=== PATIENT | male | born 1955 | race Caucasian/White ===

== ENCOUNTER → 2016-03-20 | Outpatient (CLI) | payer BC ==
--- NOTE | 2016-03-20 21:49 | CONS ---
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 He is very much concerned about loud snoring that has been gradually getting worse over the years. He has not gained any significant amount of weight. He snores at night and occasionally wakes up gasping for air; however, this is not a frequent occurrence. He typically goes to bed at around 10 p.m., wakes up at 5:30 a.m. in the morning. He averages around 6 hours of sleep. It takes him a few minutes to fall asleep, and he wakes up occasionally in the middle of the night; he estimated at least 2 to 3 times per night. He is able to go back to sleep without any major difficulties. No history of chronic insomnia. No history alcoholism. No history of substance abuse. No sleepwalking or sleeptalking. No restlessness in the lower extremities. No GE reflux. He has a history of SVT. Current rhythm is sinus for now. He also has chronic allergic rhinitis, worse around springtime, and he is using Flonase in that regard. He has seen a dentist for grinding of his teeth, and he is currently wearing a bite block. PAST MEDICAL HISTORY: 1. History of SVT. 2. Allergic rhinitis. 3. Grinding of the teeth. SURGICAL HISTORY: None. DRUG ALLERGIES: NONE. OUTPATIENT MEDICATIONS: None. SOCIAL HISTORY: Nonsmoker. No history of alcoholism. No history of IV drugs. OCCUPATIONAL HISTORY: He is an electrician helper powerhouse. FAMILY HISTORY: Noncontributory. REVIEW OF SYSTEMS: Twelve-point review of systems was done and the positive findings were all mentioned above in the history of present illness. BP is 143/89, pulse 77, respiration 16, temperature 97.4, saturation 98% on room air. [place] score is 7. Neck size is 15 inches. BMI is 27.2. Weight is 166. Height is 65 inches. GENERAL APPEARANCE: Calm, comfortable. HEENT: There is an obvious overbite with a high-sitting tongue and a Mallampati class IV. No micrognathia. LUNGS: Clear to auscultation. Heart sounds are regular rate and rhythm. Normal S1, S2. ABDOMEN: Soft, nontender. No organomegaly. EXTREMITIES: No edema. No cyanosis or clubbing. IMPRESSION: 1. Loud snoring. Rule out underlying obstructive sleep apnea. 2. Allergic rhinitis, worse during spring, on Flonase. 3. History of supraventricular tachycardia. 4. Grinding of the teeth; wearing a bite block. PLAN: 1. Will proceed with a home sleep study to assess the presence and severity of obstructive sleep apnea; if so, treatment will be offered accordingly to this patient. 2. Continue wearing the bite guard for now. 3. Will follow.
== END | disposition home or self-care (01) ==
LOC: SLEEP 15:05
PROVIDERS: ATTEND Internal Medicine Critical Care Medicine
DX: R06.83 Snoring (principal); J30.9 Allergic rhinitis, unspecified; I47.1 Supraventricular tachycardia; Z79.899 Other long term (current) drug therapy; G47.63 Sleep related bruxism
CPT/HCPCS: 99211

== ENCOUNTER → 2016-07-17 | Outpatient (CLI) | payer BC ==
--- NOTE | 2016-07-17 21:45 | PN ---
60-year-old male patient coming in for a compliancy follow-up for obstructive sleep apnea treatment. He this patient was diagnosed having moderate to severe obstructive sleep apnea and an AHI of 21, worse in a supine body position. He was given CPAP at a pressure of 6 cm of water. He is doing better. His sleeping quality has improved. Snoring has completely recovered and he is able to sleep in various body positions including supine without any major difficulties. He is using his CPAP every night. His CPAP use for more than 4 hours, 28 out of 30 days. His average CPAP use is 7.9 hours per night. His leak factor is 2 liters per minute. His AHI is down to one. No central apneas were noted. Weight has been stable. No major hypersomnia or sleepiness and he seems to be much more alert and awake during the day. He has no complaints otherwise for now. BP is 126/82, pulse 70, respirations 16, temperature 98.0. Weight is 169 and [place] score is 9, saturation 96% on room air. GENERAL APPEARANCE: Calm, comfortable. HEENT: Negative for JVD. There is no goiter, neck masses. Crowding posterior pharynx is present. LUNGS: Clear to auscultation. HEART: Heart sounds are regular rate and rhythm. Normal S1, S2. ABDOMEN: Soft, nontender. No organomegaly. EXTREMITIES: No edema. No cyanosis, or clubbing. IMPRESSION: 1. Symptomatic obstructive sleep apnea with an AHI of 21, moderate to severe currently undergoing successful continuous CPAP therapy at a pressure of 6. 2. History of supraventricular tachycardia. 3. Allergic rhinitis. PLAN: 1. Continue CPAP therapy at a pressure of 6. 2. Continue AirFit P10 nasal pillows. 3. Gave him prescription for a portable CPAP unit. 4. See me back in a year's time; earlier if needed.
== END | disposition home or self-care (01) ==
LOC: SLEEP 16:25
PROVIDERS: ATTEND Internal Medicine Critical Care Medicine
DX: G47.33 Obstructive sleep apnea (adult) (pediatric) (principal)

== ENCOUNTER → 2017-07-16 | Outpatient (CLI) | payer BC ==
--- NOTE | 2017-07-16 20:52 | PN ---
PROGRESS NOTE A 61-year-old male patient coming in for an annual check regarding his NADIA treatment. 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 He has been receiving CPAP therapy since then. His AHI is 21 at baseline and he is currently on CPAP pressure of 6 cm of water. He reports ongoing benefit from the CPAP treatment. He favors the continued treatment. He has been averaging around 7.7 hours of CPAP use per night. His CPAP use for more than 4 hours is 100%. His leak factor is 4 L and AHI while on treatment is down to 1.1. He has no complaint and weight is been stable. [place] Score is at 4. REVIEW OF SYSTEMS: A 12-point review of system was done. Positive findings are mentioned above in the history of present illness. PHYSICAL EXAMINATION: His BP is 128/81, pulse 70, respirations 16, temperature 98.4, saturation 97% on room air. Weight is 166, height is 5 feet 11 inches and BMI is 27. GENERAL APPEARANCE: Calm, comfortable, in no acute distress. Head is atraumatic, normocephalic. Neck is supple. There is no JVD. There is no goiter or neck mass. LUNGS: Clear to auscultation. Heart sounds are regular rhythm. Normal S1, S2. No S3. No murmurs. ABDOMEN: Soft, nontender. No organomegaly. EXTREMITIES: No edema. No cyanosis or clubbing. IMPRESSION: 1. Obstructive sleep apnea, moderate in severity, apnea-hypopnea index of 21. 2. Successful CPAP therapy at a pressure of 6. 3. Supraventricular tachycardia. 4. Allergic rhinitis. PLAN: 1. Continue CPAP at same level of pressure. 2. Renew CPAP supplies. 3. See me back in a year's time in followup. No need for any further adjustment at this point in time. MMODL / IJN: [id number] /
== END | disposition home or self-care (01) ==
LOC: SLEEP 13:19
PROVIDERS: ATTEND Internal Medicine Critical Care Medicine
DX: Z53.9 Procedure and treatment not carried out, unspecified reason (principal)

== ENCOUNTER → 2018-07-08 | Outpatient (CLI) | payer OTHER ==
--- NOTE | 2018-07-08 17:48 | PN ---
PROGRESS NOTE This patient is a 62-year-old coming in for an annual check regarding NADIA. He is doing well. No issues with compliancy. He is extremely compliant, averaging about 8 hours of CPAP use per night. Leak is zero liters per minute. AHI is down to 0.9 from a baseline of 20. He is on a CPAP pressure of 6. Weight has been stable. He has no complaints of hypersomnia or sleepiness. [place] score is only 1. PHYSICAL EXAMINATION: BP is 142/82, pulse 84, respirations 16, temperature 98.2, saturation 97% on room air. Weight is 168. GENERAL APPEARANCE: Calm, comfortable. Head is atraumatic, normocephalic. Neck is supple. No JVD. No goiter or neck masses. LUNGS: Clear to auscultation. Heart sounds are regular rate and rhythm. Normal S1, S2. No S3, S4. No murmurs. ABDOMEN: Soft, nontender. No organomegaly. EXTREMITIES: No edema. No cyanosis or clubbing. NEUROLOGIC: Alert and oriented x3. No focal neurological deficits. PSYCHIATRY: Negative for anxiety or depression. IMPRESSION: Obstructive sleep apnea, apnea/hypopnea index of 20, currently successfully treated with CPAP pressure of 6. He remains compliant and has excellent clinical response. PLAN: 1. Keep the same pressure. 2. Keep the same mask interface, which is an AirFit F20, large size. 3. Encourage weight loss. 4. See me back as needed. MMODL / IJN: [id number] /
== END | disposition home or self-care (01) ==
LOC: SLEEP 16:27
PROVIDERS: ATTEND Internal Medicine Critical Care Medicine
DX: G47.33 Obstructive sleep apnea (adult) (pediatric) (principal); Z99.89 Dependence on other enabling machines and devices

== ENCOUNTER → 2020-10-21 | Outpatient (CLI) | payer OTHER ==
--- NOTE | 2020-10-25 07:01 | PE ---
EXAMINATION TYPE: PET CT fusion skull to thigh DATE OF EXAM: 10/21/2020 COMPARISON: NONE HISTORY: Mantle cell lymphoma on the excisional biopsy left groin September 27, 2020 TECHNIQUE: Following the intravenous administration of 12.55 mCi of F-18 FDG, whole body images are performed from the skull base to the midthigh. Images are reviewed on the computer in the coronal, a xial, and sagittal planes. Reconstructed rotating images are created on independent workstation and reviewed on the computer. A localization and attenuation correction CT is performed in conjunction with the PET scan. Blood glucose level equals 90 SCAN: Initial Scan FINDINGS: Mean SUV mediastinum : 1.08 (difficult to accurately measure) Mean SUV liver: 1.3 SKULL BASE AND NECK: Multiple enlarged hypermetabolic bilateral neck lymph nodes. There is bilateral involvement above the hyoid bone as well as in between hyoid bone and vocal cords and below the voca l cords including bilateral supraclavicular and posterior cervical triangle regions. For reference th ere is left posterior cervical triangle 1.8 x 1.6 cm lymph node axial image 49, max SUV is 3.58 just below level of hyoid bone. For reference there is right submandibular 1.8 x 2.4 cm lymph node axial i mage 44 level of hyoid bone, max SUV is 5.2. MEDIASTINUM, AND HILAR REGION: Enlarged hypermetabolic bilateral axillary lymph nodes include involve ment deep and medial to the pectoralis minor muscles. Max SUV in the right axilla is 5.1 on axial jaxon ge 74 Abnormal enlargement and prominent hypermetabolic lymph nodes including involvement of the right kim r region, anterior superior mediastinum, as well as additional mediastinal lymph nodes throughout the paratracheal, AP window, subcarinal, and paraesophageal levels. ABDOMEN AND PELVIS: Splenomegaly with mild diffuse abnormal hypermetabolic uptake. Liver normal in si ze without suspicious hypermetabolic uptake. Confluent hypermetabolic retroperitoneal lymph nodes encase the IVC and aorta through the bifurcation . Max SUV is 6.66 just past the aortic bifurcation. There is confluent hypermetabolic iliac chain lym ph nodes bilaterally. Max SUV is 7.08 on the left axial image 210 and 6.5 on the right axial image 20 7. Abnormal hypermetabolic bilateral groin lymph nodes along with nonspecific uptake at site of irregula r hypodense area axial image 221 favoring post surgical change with hematoma from recent excisional b iopsy. OSSEOUS STRUCTURES: No areas of abnormal hypermetabolic uptake. OTHER CT: Coronary artery calcification is present. Bladder wall is mildly concentrically thickened. Prostate gland is bulky mildly enlarged in size. Scattered adjacent pelvic phleboliths. IMPRESSION: Confirmation of Abnormal enlarged and hypermetabolic adenopathy both above and below diap hragm as detailed above.
== END | disposition home or self-care (01) ==
LOC: RADPETMAIN 13:31
PROVIDERS: ATTEND Internal Medicine Hematology & Oncology
DX: C83.15 Mantle cell lymphoma, lymph nodes of inguinal region and lower limb (principal); R59.0 Localized enlarged lymph nodes
CPT/HCPCS: 78815; A9552

== ENCOUNTER → 2021-01-13 | Outpatient (CLI) | payer OTHER ==
--- NOTE | 2021-01-14 10:50 | PE ---
EXAMINATION TYPE: PET CT fusion skull to thigh DATE OF EXAM: 01/13/2021 COMPARISON: Prior PET/CT October 21, 2020 HISTORY: Mantle cell lymphoma on the excisional biopsy left groin September 27, 2020 completed chemoth erapy January 02. TECHNIQUE: Following the intravenous administration of 10.61 mCi of F-18 FDG, whole body images are performed from the skull base to the midthigh. Images are reviewed on the computer in the coronal, a xial, and sagittal planes. Reconstructed rotating images are created on independent workstation and reviewed on the computer. A localization and attenuation correction CT is performed in conjunction with the PET scan. Blood glucose level equals 100 SCAN: Subsequent Scan FINDINGS: Mean SUV mediastinum : 0.85 Mean SUV liver: 2.09 SKULL BASE AND NECK: Marked improvement in abnormal hypermetabolic and enlarged bilateral neck lymph nodes from above the hyoid bone through below the vocal cords. No residual abnormal hypermetabolic a nd/or enlarged lymph nodes identified on current study MEDIASTINUM, AND HILAR REGION: Marked interval improvement in abnormal hypermetabolic and enlarged bi lateral axillary and thoracic lymph nodes . No new or residual abnormal enlarged or hypermetabolic lymph nodes seen on current study. ABDOMEN AND PELVIS: Improvement in splenic size and mild diffuse abnormal hypermetabolic uptake. Live r remains normal in size without suspicious new focal or diffuse hypermetabolic uptake. Marked interval improvement in the confluent hypermetabolic lymph nodes greatest in the retroperitone um of the mid to lower abdomen encasing the aorta and IVC without any residual abnormal hypermetaboli c lymph nodes on current study. Marked improvement in bilateral hypermetabolic groin uptake or adenop athy, small focus of residual hypermetabolic uptake along the medial aspect of the left groin scar ax ial image 221 is present, max SUV is 5.78. Slight asymmetric near 1.0 cm soft tissue nodularity at th is level is seen. OSSEOUS STRUCTURES: No new areas of abnormal hypermetabolic uptake. OTHER CT: Coronary artery calcification is redemonstrated. Enlarged right pulmonary artery redemonstr ated consistent with underlying pulmonary artery hypertension. Stable mild cardiomegaly. Mildly enlarged prostate gland redemonstrated. Scattered adjacent pelvic phleboliths again seen. IMPRESSION: Significant positive treatment response. Some residual or recurrent neoplasm left groin l evel cannot be excluded on this exam.
== END | disposition home or self-care (01) ==
LOC: RADPETMAIN 09:06
PROVIDERS: ATTEND Internal Medicine Hematology & Oncology
DX: C83.18 Mantle cell lymphoma, lymph nodes of multiple sites (principal)
CPT/HCPCS: 78815; A9552

== ENCOUNTER 2021-01-25 07:26 | Day surgery (SDC) | payer OTHER ==
[2021-01-23 15:15] VITALS: BMI 27.1
[2021-01-25 07:57] VITALS: BP 150/86; PULSE 74; RESP 18; TEMP 98
[2021-01-25 08:29] LABS: Potassium 4.2 mmol/L (3.5-5.1)
[2021-01-25] MEDS ORDERED: LIDOCAINE 1% INJ 10MG/ML (20 ML MDV) ONE (09:10)
[2021-01-25] MEDS ORDERED: LIDOCAINE 1% INJ 10MG/ML (20 ML MDV) SQ ONE (09:27)
--- NOTE | 2021-01-25 13:25 | IR ---
PICC LINE PLACEMENT: HISTORY: Infection requiring long-term antibiotic therapy PROCEDURE: Ultrasound and fluoroscopic guidance of PICC line placement. COMPLICATIONS: None ANESTHESIA: 1. 1% Lidocaine locally. FINDINGS/TECHNIQUE: The procedure was explained to the patient. The risks, complications, benefits and alternatives were discussed and any questions were answered. Informed consent was obtained. The patient was placed supine on the fluoroscopic table and prepped and draped in the usual sterile fas ion. Utilizing a 21 gauge needle and sonographic and fluoroscopic guidance, access in the vein was achieved and there is placement of a 0.018 guidewire. The vein is patent. A 4-F sheath was placed o sushil the guidewire. The guidewire and dilator were removed and a 4-F. PICC line was placed through th e sheath with the tip at the level of the SVC. The sheath was removed, the catheter was flushed and sutured into position. The patient was stable throughout the procedure and remained stable upon disc harge from the Department of Radiology. The vein puncture was patent under ultrasound. A denny scale image was obtained to document patency of the vein punctured. All elements of the maximal barrier technique were utilized. FLUOROSCOPY TIME: 0.1 minute and one image submitted. IMPRESSION: Successful PICC line placement under ultrasound and fluoroscopic guidance.
== END 2021-01-25 10:00 | disposition home or self-care (01) ==
LOC: CATHCVL 07:26
PROVIDERS: ATTEND Radiology Diagnostic Radiology
DX: C83.15 Mantle cell lymphoma, lymph nodes of inguinal region and lower limb (principal); Z20.822 Contact with and (suspected) exposure to COVID-19; Z79.899 Other long term (current) drug therapy
CPT/HCPCS: 36573; 80051; 84520; 87635; C1751; C1769; J2001

== ENCOUNTER 2021-01-30 13:38 | Inpatient (IN) | payer OTHER ==
[2021-01-30] MEDS: ONDANSETRON 16 MG in SODIUM CHLORIDE 0.9% 50 ML IVPB SCH (15:18)
[2021-01-30] MEDS: SODIUM CHLORIDE 0.9% 1,000 ML IV SCH (15:19)
[2021-01-30] MEDS: prednisoLONE ACETATE 1% OPHTH DROPS 5 ML BTL BOTH EYES SCH ×2 (17:49→21:22)
[2021-01-30] MEDS: SODIUM CHLORIDE 0.9% IV SCH (18:00)
[2021-01-30] MEDS: CYTARABINE IV SCH (18:00)
--- NOTE | 2021-01-30 18:20 | P.PN ---
Progress Note - Text Progress Note Date: 01/30/21 Pt admitted late in afternoon for high dose cytarabine x 2 days-he was in the office today for the Rituxan. Below is medical Hx-he will be seen in AM. Orders were reviewed. Mr. Jarvis is a very pleasant pt of Dr. Burger who presented with enlarging left inguinal node x 1 year. U/S of the groin identified a large left inguinal node. 09/27/20 he had incisional biopsy which was positive for mantle cell lymphoma, diffuse proliferation, positive for CD5, CD 20, BCL2, cyclin D1, SOX 11, KI-67 35%. 10/06/20 CT CAP revealed mediastinal nodes up to 3 cm, bilateral axillary nodes up to 2 cm, retroperitoneal nodes up to 3 cm surrounding IVC extending into both inguinal regions, CT of neck bilateral supraclavicular nodes up to 1.7 cm, multiple other enlarged bilateral neck nodes, 2 cm in submandibular area. 10/03/20, CBC, CMP, LDH, uric acid, hepatitis panel were all normal. 10/21/20 PET positive adenopathies above and below diaphragm. 11/03/20 he started BR regimen, which he completed 3 and now he is going to complete 3 cycles of Rituxan/cytarabine. He did have treatment f/u PET 01/09/2021 that showed significant improvement in LAD.
[2021-01-31] MEDS: SODIUM CHLORIDE 0.9% 1,000 ML IV SCH ×2 (00:22→09:04)
[2021-01-31] MEDS: CYTARABINE IV SCH ×2 (05:41→18:22)
[2021-01-31] MEDS: SODIUM CHLORIDE 0.9% IV SCH ×2 (05:41→18:22)
[2021-01-31 08:48] LABS: Basophils % (A) 1 %; Eosinophils % (A) 1 %; HCT 41.7 % (39.0-53.0); HGB 13.7 gm/dL (13.0-17.5); Lymphocytes # (A) 0.3 k/uL (1.0-4.8); Lymphocytes % (A) 7 %; MCH 29.2 pg (25.0-35.0); MCHC 32.9 g/dL (31.0-37.0); MCV 88.8 fL (80.0-100.0); Mean Platelet Volume 7.4; Monocytes # (A) 0.3 k/uL (0-1.0); Monocytes % (A) 6 %; Neutrophils # (A) 4.5 k/uL (1.3-7.7); Neutrophils % (A) 86 %; Platelet Count 211 k/uL (150-450); RDW 12.2 % (11.5-15.5); WBC 5.3 k/uL (3.8-10.6)
[2021-01-31] MEDS: prednisoLONE ACETATE 1% OPHTH DROPS 5 ML BTL BOTH EYES SCH ×4 (09:01→21:51)
[2021-01-31 09:13] LABS: ALT 20 U/L (4-49); AST 26 U/L (17-59); African American GFR (CKD) >90 (>60 ml/min/1.73 sqM); Albumin 3.8 g/dL (3.5-5.0); Albumin/Globulin Ratio 1.4; Alkaline Phosphatase 42 U/L (38-126); Anion Gap 6 mmol/L; Blood Urea Nitrogen 12 mg/dL (9-20); Calcium 8.8 mg/dL (8.4-10.2); Carbon Dioxide 27 mmol/L (22-30); Chloride 106 mmol/L (98-107); Globulin 2.7 g/dL; Glucose 126 mg/dL (74-99); Non-African American GFR(CKD) 89 (>60 ml/min/1.73 sqM); Phosphorus 3.8 mg/dL (2.5-4.5); Potassium 3.8 mmol/L (3.5-5.1); Sodium 139 mmol/L (137-145); Total Bilirubin 0.6 mg/dL (0.2-1.3); Total Protein 6.5 g/dL (6.3-8.2); Uric Acid 4.3 mg/dL (3.5-8.5)
[2021-01-31] MEDS ORDERED: FAMOTIDINE 20 MG/2 ML VIAL IV ONE (15:00)
[2021-01-31] MEDS ORDERED: DEXAMETHASONE SOD PHOSPHATE 10 MG/ML 1 ML VIAL IV ONE (15:00)
--- NOTE | 2021-01-31 17:07 | P.HPIM ---
History of Present Illness H&P Date: 01/31/21 Chief Complaint: Admit for CIVI chemotherapy Mantle cell lymphoma Mr. Jarvis is a very pleasant pt of Dr. Burger who presented with enlarging left inguinal node x 1 year. U/S of the groin identified a large left inguinal node. 09/27/20 he had incisional biopsy which was positive for mantle cell lymphoma, diffuse proliferation, positive for CD5, CD 20, BCL2, cyclin D1, SOX 11, KI-67 35%. 10/06/20 CT CAP revealed mediastinal nodes up to 3 cm, bilateral axillary nodes up to 2 cm, retroperitoneal nodes up to 3 cm surrounding IVC extending into both inguinal regions, CT of neck bilateral supraclavicular nodes up to 1.7 cm, multiple other enlarged bilateral neck nodes, 2 cm in submandibular area. 10/03/20, CBC, CMP, LDH, uric acid, hepatitis panel were all normal. 10/21/20 PET positive adenopathies above and below diaphragm. 11/03/20 he started BR regimen, which he completed 3 and now he is going to complete 3 cycles of Rituxan/cytarabine. He did have treatment f/u PET 01/09/2021 that showed significant improvement in LAD. He is admitted for 48 hours of CIVI cytarabine. He has no physical c/o on a 10 point ROS. Review of Systems 10 point ROS is neg except as stated in HPI Past Medical History Past Medical History: Cancer, GERD/Reflux, Hyperlipidemia, Sleep Apnea/CPAP/BIPAP, Supraventricular Tachycardia (SVT) Additional Past Medical History / Comment(s): 09/2020 diagnosed with mantle cell lymphoma treating with chemotherapy, constipation with previous chemo and nausea, NADIA with Cpap, SVT, History of Any Multi-Drug Resistant Organisms: None Reported Additional Past Surgical History / Comment(s): L groin lymph node biopsy, L inguinal hernia repair, R knee arthroscopic surgery, colonoscopy. Additional Past Anesthesia/Blood Transfusion Reaction / Comment(s): Feels fuzzy for a week after. Past Psychological History: No Psychological Hx Reported Smoking Status: Never smoker Past Alcohol Use History: None Reported Past Drug Use History: None Reported - Past Family History Father Additional Family Medical History / Comment(s): Father had an enlarged heart and from this at the age of 60 yrs. Mother Family Medical History: Dementia Additional Family Medical History / Comment(s): Mother from dementia at the age of 90yrs. Medications and Allergies Home Medications Medication Instructions Recorded Confirmed Type Multivitamins, Thera [Multivitamin 1 tab PO HS 01/23/21 01/30/21 History (formulary)] Simvastatin [Zocor] 10 mg PO HS 01/23/21 01/30/21 History Allergies Allergy/AdvReac Type Severity Reaction Status Date / Time No Known Allergies Allergy Verified 01/30/21 14:40 Physical Exam Vitals: Vital Signs Temp Pulse Pulse Resp BP Pulse Ox 01/31/21 11:51 97.7 F 89 15 152/82 98 01/31/21 09:13 97.9 F 72 14 142/89 97 01/31/21 05:04 98 F 71 121/70 99 01/30/21 20:00 98.2 F 84 16 162/98 96 01/30/21 17:43 97.7 F 80 16 148/78 01/30/21 15:19 89 16 01/30/21 14:36 98.2 F 89 16 150/79 98 Intake and Output 01/30/21 01/31/21 01/31/21 22:59 06:59 14:59 Intake Total 730 800 Balance 730 800 Intake: Intake, IV Titration 250 800 Amount Ondansetron 16 mg In 50 Sodium Chloride 0.9% 50 ml @ 232 mls/hr IVPB Q24H [facility] Rx#:[id number] Sodium Chloride 0.9% 1, 200 800 000 ml @ 100 mls/hr IV . Q10H [facility] Rx#:[id number] Oral 480 - Constitutional General appearance: average body habitus, cooperative, no acute distress - EENT Eyes: anicteric sclerae, EOMI ENT: hearing grossly normal, normal oropharynx - Neck Neck: no lymphadenopathy - Respiratory Respiratory: bilateral: CTA - Cardiovascular Rhythm: regular Heart sounds: normal: S1, S2 Abnormal Heart Sounds: no systolic murmur, no diastolic murmur, no rub, no S3 Gallop, no S4 Gallop, no click, no other leg Peripheral Edema: bilateral: None - Gastrointestinal General gastrointestinal: no absent bowel sounds, no decreased bowel sounds, no distended, no hepatomegaly, no hyperactive bowel sounds, normal bowel sounds, no organomegaly, no rigid, no scaphoid, soft, no splenomegaly, no tenderness, no umbilical hernia, no ventral hernia - Integumentary Integumentary: normal, normal turgor - Neurologic Neurologic: CNII-XII intact - Musculoskeletal Musculoskeletal: strength equal bilaterally - Psychiatric Psychiatric: A&O x's 3, appropriate affect, intact judgment & insight Results CBC & Chem 7: 01/31/21 08:30 01/31/21 08:30 Labs: Abnormal Lab Results - Last 24 Hours (Table) 01/31/21 01/31/21 Range/Units 08:30 08:30 Lymphocytes # 0.3 L (1.0-4.8) k/uL Glucose 126 H (74-99) mg/dL Thrombosis Risk Factor Assmnt - Choose All That Apply Any of the Below Risk Factors Present?: Yes Each Factor Represents 1 point: Obesity (BMI >25) Other Risk Factors: Yes Each Risk Factor Represents 2 Points: Age 61-74 years, Malignancy Other congenital or acquired thrombophilia - If yes, enter type in comment: No Thrombosis Risk Factor Assessment Total Risk Factor Score: 5 Thrombosis Risk Factor Assessment Level: High Risk Assessment and Plan (1) Mantle cell lymphoma Narrative/Plan: Admit for chemo, orders reviewed. Med reconciled VS Q shift and PRN Labs daily Steroid eyedrops supportive meds [place] fluids and activity Daily f/u Current Visit: Yes Status: Acute Priority: High Code(s): C83.10 - MANTLE CELL LYMPHOMA, UNSPECIFIED SITE SNOMED Code(s): 201374182 Plan: Doctor attests: I performed a history and physical examination of this patient, developed impression and plan of care, discussed with dictator. I agree with dictators note, documented as a scribe.
[2021-01-31] MEDS: ONDANSETRON 16 MG in SODIUM CHLORIDE 0.9% 50 ML IVPB SCH (17:28)
[2021-02-01] MEDS: SODIUM CHLORIDE 0.9% IV SCH (05:07)
[2021-02-01] MEDS: CYTARABINE IV SCH (05:07)
[2021-02-01] MEDS: SODIUM CHLORIDE 0.9% 1,000 ML IV SCH ×2 (05:37→09:47)
[2021-02-01 05:53] LABS: Basophils % (A) 0 %; Eosinophils % (A) 0 %; HCT 40.9 % (39.0-53.0); HGB 13.6 gm/dL (13.0-17.5); Lymphocytes # (A) 0.2 k/uL (1.0-4.8); Lymphocytes % (A) 3 %; MCH 29.9 pg (25.0-35.0); MCHC 33.2 g/dL (31.0-37.0); MCV 90.2 fL (80.0-100.0); Mean Platelet Volume 7.1; Monocytes # (A) 0.2 k/uL (0-1.0); Monocytes % (A) 3 %; Neutrophils # (A) 5.6 k/uL (1.3-7.7); Neutrophils % (A) 94 %; Platelet Count 183 k/uL (150-450); RBC 4.53 m/uL (4.30-5.90); RDW 12.8 % (11.5-15.5)
[2021-02-01 08:57] VITALS: BP 132/72; PULSE 68; RESP 18; TEMP 98.3
[2021-02-01] MEDS: prednisoLONE ACETATE 1% OPHTH DROPS 5 ML BTL BOTH EYES SCH (09:47)
[2021-02-01 10:40] LABS: Albumin 4.1 g/dL (3.8-4.9); Albumin/Globulin Ratio 2.28 (1.60-3.17); Anion Gap 12.2 mmol/L (10.00-18.00); BUN/Creat Ratio 16.78 Ratio (12.00-20.00); Blood Urea Nitrogen 15.1 mg/dL (9.0-27.0); Calcium 8.8 mg/dL (8.7-10.3); Carbon Dioxide 21.8 mmol/L (20.0-27.5); Globulin 1.8 g/dL (1.6-3.3); Non-African American GFR(CKD) 90.6 (60.0-200.0); Potassium 4.2 mmol/L (3.5-5.5); Total Bilirubin 0.4 mg/dL (0.30-1.20); Total Protein 5.9 g/dL (6.2-8.2); Uric Acid 4.2 mg/dL (3.7-8.7)
--- NOTE | 2021-02-01 11:33 | P.DS ---
Providers Date of admission: 01/30/21 13:38 Expected date of discharge: 02/01/21 Attending physician: Leodan Burger Primary care physician: Rigo Arroyo - Discharge Diagnosis(es) (1) Mantle cell lymphoma Current Visit: Yes Status: Acute Priority: High Hospital Course: Pt admitted for 1/3 CIVI high dose cytarabine treatment for mantle cell lymphoma. He tolerated treatment well with no significant or uncontrolled side effects reported. He is tolerating oral intake and is completely independently ambulatory. He completed treatment this AM and is ready for discharge. Assessment: WD,WN,NAD, A&Ox4, no gross motor deficits, oral mucosa free of thrush, no ulcers, BBS CTA, resp effort unlabored, S1S1, BS +, no abd distension, BLE swelling, rash. Procedures: CIVI high dose cytarabine, pt did receive rituxan infusion at [facility] prior to admit Patient Condition at Discharge: Stable Plan - Discharge Summary Discharge Rx Participant: No New Discharge Prescriptions: No Action Simvastatin [Zocor] 10 mg PO HS Multivitamins, Thera [Multivitamin (formulary)] 1 tab PO HS Discharge Medication List Multivitamins, Thera [Multivitamin (formulary)] 1 tab PO HS 01/23/21 [History] Simvastatin [Zocor] 10 mg PO HS 01/23/21 [History] Follow up Appointment(s)/Referral(s): Leodan Burger MD [STAFF PHYSICIAN] - 02/02/21 12:30 pm (This is for GCSF injection. RNs will make further appt for pt when he is there) Activity/Diet/Wound Care/Special Instructions: Diet as tolerated Activity as tolerated Monitor temp 2-3 times a day and as needed. Call Dr. Burger's [facility] for a temp 100.5F or higher Pt states he has supportive meds (anti-nausea meds, stool softeners) already at home Treat side effects immediately [place] fluids PICC line dressing change weekly. NS flush 3 times a week Discharge Disposition: HOME SELF-CARE Pending Studies Pending Results: no pending results
== END 2021-02-01 12:52 | disposition home or self-care (01) | DRG 847 ==
LOC: 5NMEDONC 13:38
PROVIDERS: ADMIT Internal Medicine Hematology & Oncology; ATTEND Internal Medicine Hematology & Oncology
PROC: 3E03305 Introduction of Other Antineoplastic into Peripheral Vein, Percutaneous Approach (ICD-10-PCS; principal; 2021-01-30)
PROC: 3E0333Z Introduction of Anti-inflammatory into Peripheral Vein, Percutaneous Approach (ICD-10-PCS; 2021-01-31)
DX: Z51.11 Encounter for antineoplastic chemotherapy (principal); C83.10 Mantle cell lymphoma, unspecified site; Z92.21 Personal history of antineoplastic chemotherapy; E78.5 Hyperlipidemia, unspecified
CPT/HCPCS: 80053; 84100; 84550; 85025

== ENCOUNTER 2021-02-27 09:03 | Inpatient (IN) | payer OTHER ==
[2021-02-27] MEDS ORDERED: SODIUM CHLORIDE 0.9% 1,000 ML IV SCH (13:00)
[2021-02-27 15:50] LABS: Basophils % (A) 0 %; Eosinophils % (A) 0 %; HCT 37.7 % (39.0-53.0); HGB 12.6 gm/dL (13.0-17.5); Lymphocytes # (A) 0.3 k/uL (1.0-4.8); Lymphocytes % (A) 3 %; MCH 29.6 pg (25.0-35.0); MCHC 33.5 g/dL (31.0-37.0); MCV 88.4 fL (80.0-100.0); Mean Platelet Volume 7.1; Monocytes # (A) 0.2 k/uL (0-1.0); Monocytes % (A) 2 %; Neutrophils # (A) 7.7 k/uL (1.3-7.7); Neutrophils % (A) 93 %; RBC 4.26 m/uL (4.30-5.90); RDW 14.8 % (11.5-15.5); WBC 8.3 k/uL (3.8-10.6)
[2021-02-27 15:52] LABS: Platelet Count 507 k/uL (150-450)
[2021-02-27] MEDS: SODIUM CHLORIDE 0.9% 1,000 ML IV SCH ×2 (15:59→22:32)
[2021-02-27] MEDS: ONDANSETRON 16 MG in SODIUM CHLORIDE 0.9% 50 ML IVPB SCH (15:59)
[2021-02-27 16:00] LABS: ALT 41 U/L (4-49); AST 35 U/L (17-59); African American GFR (CKD) >90 (>60 ml/min/1.73 sqM); Albumin 4.4 g/dL (3.5-5.0); Albumin/Globulin Ratio 1.7; Alkaline Phosphatase 54 U/L (38-126); Anion Gap 8 mmol/L; Blood Urea Nitrogen 11 mg/dL (9-20); Calcium 9.5 mg/dL (8.4-10.2); Carbon Dioxide 28 mmol/L (22-30); Chloride 105 mmol/L (98-107); Globulin 2.6 g/dL; Glucose 176 mg/dL (74-99); Non-African American GFR(CKD) 87 (>60 ml/min/1.73 sqM); Phosphorus 2.7 mg/dL (2.5-4.5); Potassium 4.4 mmol/L (3.5-5.1); Sodium 141 mmol/L (137-145); Total Bilirubin 0.4 mg/dL (0.2-1.3); Uric Acid 4.6 mg/dL (3.5-8.5)
--- NOTE | 2021-02-27 16:20 | P.HPIM ---
History of Present Illness H&P Date: 02/27/21 Chief Complaint: Mantle cell lymphoma, CIVI Mr. Jarvis is a very pleasant pt of Dr. Burger who presented with enlarging left inguinal node x 1 year. U/S of the groin identified a large left inguinal node. 09/27/20 he had excisional biopsy which was positive for mantle cell lymphoma, diffuse proliferation, positive for CD5, CD 20, BCL2, cyclin D1, SOX 11, KI-67 35%. 10/06/20 CT CAP revealed mediastinal nodes up to 3 cm, bilateral axillary nodes up to 2 cm, retroperitoneal nodes up to 3 cm surrounding IVC extending into both inguinal regions, CT of neck bilateral supraclavicular nodes up to 1.7 cm, multiple other enlarged bilateral neck nodes, 2 cm in submandibular area. 10/03/20, CBC, CMP, LDH, uric acid, hepatitis panel were all normal. 10/21/20 PET positive adenopathies above and below diaphragm. 11/03/20 he started BR regimen, which he completed 3 and now he is going to complete 3 cycles of Rituxan/cytarabine. He did have treatment f/u PET 01/09/2021 that showed significant improvement in LAD. He was admitted 3 weeks ago for 48 hours of CIVI cytarabine. He did well with no significant complications post treatment. He is her for cycle #2. He has no physical c/o on a 10 point ROS. Few new skin lesions on the scalp Review of Systems 10 point ROS is nege except as stated in HPI Past Medical History Past Medical History: Cancer, GERD/Reflux, Hyperlipidemia, Sleep Apnea/CPAP/BIPAP, Supraventricular Tachycardia (SVT) Additional Past Medical History / Comment(s): 09/2020 diagnosed with mantle cell lymphoma treating with chemotherapy, constipation with previous chemo and nausea, NADIA with Cpap, SVT, History of Any Multi-Drug Resistant Organisms: None Reported Additional Past Surgical History / Comment(s): L groin lymph node biopsy, L inguinal hernia repair, R knee arthroscopic surgery, colonoscopy. Additional Past Anesthesia/Blood Transfusion Reaction / Comment(s): Feels fuzzy for a week after. Past Psychological History: No Psychological Hx Reported Additional Psychological History / Comment(s): Pt resides with his spouse. He is independent. Smoking Status: Never smoker Past Alcohol Use History: None Reported Past Drug Use History: None Reported - Past Family History Father Additional Family Medical History / Comment(s): Father had an enlarged heart and from this at the age of 60 yrs. Mother Family Medical History: Dementia Additional Family Medical History / Comment(s): Mother from dementia at the age of 90yrs. Medications and Allergies Home Medications Medication Instructions Recorded Confirmed Type Multivitamins, Thera [Multivitamin 1 tab PO HS 01/23/21 02/27/21 History (formulary)] Simvastatin [Zocor] 10 mg PO HS 01/23/21 02/27/21 History Allergies Allergy/AdvReac Type Severity Reaction Status Date / Time No Known Allergies Allergy Verified 02/27/21 14:24 Physical Exam - Constitutional General appearance: average body habitus, cooperative, no acute distress - EENT Eyes: anicteric sclerae, EOMI ENT: hearing grossly normal, normal oropharynx - Neck Neck: no lymphadenopathy - Respiratory Respiratory: bilateral: CTA - Cardiovascular Rhythm: regular Heart sounds: normal: S1, S2 Abnormal Heart Sounds: no systolic murmur, no diastolic murmur, no rub, no S3 Gallop, no S4 Gallop, no click, no other leg Peripheral Edema: bilateral: None - Gastrointestinal General gastrointestinal: no absent bowel sounds, no decreased bowel sounds, no distended, no hepatomegaly, no hyperactive bowel sounds, normal bowel sounds, no organomegaly, no rigid, no scaphoid, soft, no splenomegaly, no tenderness, no umbilical hernia, no ventral hernia - Integumentary 4mm scaley lesion on the scalp Integumentary: normal turgor - Neurologic Neurologic: CNII-XII intact - Musculoskeletal Musculoskeletal: strength equal bilaterally - Psychiatric Psychiatric: A&O x's 3, appropriate affect, intact judgment & insight Results CBC & Chem 7: 02/27/21 15:28 02/27/21 15:28 Thrombosis Risk Factor Assmnt - DVT/VTE Prophylaxis DVT/VTE Prophylaxis: Pharmacologic Prophylaxis ordered Assessment and Plan (1) Mantle cell lymphoma Narrative/Plan: Admit for CIVI cytarabine x 48 hours Home meds reconciled Telemetry-rituxan given in ofc today Chemo orders reviewed Supportive meds Frequent ambulation Daily wt GI/DVT prophylaxis Labs daily Follow up daily GCSF on DC Evusheld injections Current Visit: Yes Status: Acute Priority: High Code(s): C83.10 - MANTLE CELL LYMPHOMA, UNSPECIFIED SITE SNOMED Code(s): 008741413
[2021-02-27] MEDS: SODIUM CHLORIDE 0.9% IV SCH (16:44)
[2021-02-27] MEDS: CYTARABINE IV SCH (16:44)
[2021-02-27] MEDS: prednisoLONE ACETATE 1% OPHTH DROPS 5 ML BTL BOTH EYES SCH ×2 (17:47→20:00)
[2021-02-27] MEDS: SALT AND SODA MOUTHWASH 1,000 ML PO SCH ×2 (17:48→20:00)
[2021-02-27] MEDS: ATORVASTATIN 10 MG TAB PO SCH (19:59)
[2021-02-27] MEDS: MULTIVITAMINS, THERA 1 EACH TAB PO SCH (20:00)
[2021-02-28] MEDS: SALT AND SODA MOUTHWASH 1,000 ML PO SCH ×5 (00:19→22:15)
[2021-02-28] MEDS: SODIUM CHLORIDE 0.9% IV SCH ×2 (04:02→16:20)
[2021-02-28] MEDS: CYTARABINE IV SCH ×2 (04:02→16:20)
[2021-02-28 06:55] LABS: Basophils % (A) 0 %; Eosinophils % (A) 0 %; HCT 32.2 % (39.0-53.0); HGB 11.1 gm/dL (13.0-17.5); Lymphocytes # (A) 0.4 k/uL (1.0-4.8); Lymphocytes % (A) 7 %; MCH 30.4 pg (25.0-35.0); MCHC 34.6 g/dL (31.0-37.0); MCV 87.8 fL (80.0-100.0); Mean Platelet Volume 7.2; Monocytes # (A) 0.5 k/uL (0-1.0); Monocytes % (A) 9 %; Neutrophils % (A) 81 %; Platelet Count 352 k/uL (150-450); RBC 3.66 m/uL (4.30-5.90); WBC 4.9 k/uL (3.8-10.6)
[2021-02-28] MEDS: prednisoLONE ACETATE 1% OPHTH DROPS 5 ML BTL BOTH EYES SCH ×4 (08:00→22:15)
[2021-02-28] MEDS ORDERED: DEXAMETHASONE SOD PHOSPHATE 10 MG/ML 1 ML VIAL IV ONE (09:00)
[2021-02-28] MEDS ORDERED: FAMOTIDINE 20 MG/2 ML VIAL IVP ONE (09:00)
[2021-02-28 09:01] LABS: African American GFR (CKD) 110.2 (60.0-200.0); Albumin 3.5 g/dL (3.8-4.9); Albumin/Globulin Ratio 2.19 (1.60-3.17); Anion Gap 9.3 mmol/L (10.00-18.00); BUN/Creat Ratio 11.88 Ratio (12.00-20.00); Blood Urea Nitrogen 9.5 mg/dL (9.0-27.0); Calcium 8.7 mg/dL (8.7-10.3); Carbon Dioxide 23.7 mmol/L (20.0-27.5); Globulin 1.6 g/dL (1.6-3.3); Non-African American GFR(CKD) 95.1 (60.0-200.0); Phosphorus 4.5 mg/dL (2.4-5.1); Potassium 3.9 mmol/L (3.5-5.5); Total Bilirubin 0.3 mg/dL (0.30-1.20); Total Protein 5.1 g/dL (6.2-8.2); Uric Acid 4.6 mg/dL (3.7-8.7)
--- NOTE | 2021-02-28 12:20 | P.PN ---
Subjective Progress Note Date: 02/28/21 Principal diagnosis: Follicular lymphoma, CIVI cytarabine #2/3 In f/u today pt denies any fever, eye pain or vision changes, mild eye dryness, no oral irritation, nausea, cough, SOB, acute changes in bowel or bladder, he is fully ambulatory, no pain Objective - Vital Signs Vital signs: Vital Signs Temp 99.1 F 02/28/21 11:34 Pulse 93 02/28/21 11:34 Resp 20 02/28/21 11:34 BP 152/80 02/28/21 11:34 Pulse Ox 96 02/28/21 11:34 Intake & Output 02/27/21 02/28/21 02/28/21 18:59 06:59 18:59 Intake Total 1939 Balance 1939 Weight 78.18 kg Intake: Intake, IV Titration 1700 Amount Cytarabine/Pf 3,800 mg In 500 Sodium Chloride 0.9% 250 ml In Empty Bag 1 bag @ 146.667 mls/hr IV Q12H ABBY Rx#:[id number] Sodium Chloride 0.9% 1, 1200 000 ml @ 100 mls/hr IV . Q10H ABBY Rx#:[id number] Oral 240 Other: Voiding Method Toilet # Voids 2 1 - Constitutional General appearance: Present: average body habitus, cooperative, no acute distress - EENT Eyes: Present: anicteric sclerae, EOMI ENT: Present: hearing grossly normal, normal oropharynx - Neck Neck: Absent: lymphadenopathy - Respiratory Respiratory: bilateral: CTA - Cardiovascular Rhythm: regular Heart sounds: normal: S1, S2 Abnormal Heart Sounds: Absent: systolic murmur, diastolic murmur, rub, S3 Gallop, S4 Gallop, click, other - Peripheral edema leg Peripheral Edema: bilateral: None - Gastrointestinal General gastrointestinal: Present: normal bowel sounds, soft. Absent: absent bowel sounds, decreased bowel sounds, distended, hepatomegaly, hyperactive bowel sounds, organomegaly, rigid, scaphoid, splenomegaly, tenderness, umbilical hernia, ventral hernia - Integumentary Integumentary: Present: normal - Neurologic Neurologic: Present: CNII-XII intact - Musculoskeletal Musculoskeletal: Present: strength equal bilaterally - Psychiatric Psychiatric: Present: A&O x's 3, appropriate affect, intact judgment & insight - Labs CBC & Chem 7: 02/28/21 06:28 02/28/21 06:28 Labs: Abnormal Lab Results - Last 24 Hours (Table) 02/27/21 02/27/21 02/28/21 Range/Units 15:28 15:28 06:28 RBC 4.26 L 3.66 L (4.30-5.90) m/uL Hgb 12.6 L 11.1 L (13.0-17.5) gm/dL Hct 37.7 L 32.2 L (39.0-53.0) % Plt Count 507 H D (150-450) k/uL Lymphocytes # 0.3 L 0.4 L (1.0-4.8) k/uL Anion Gap (10.00-18.00) mmol/L BUN/Creatinine Ratio (12.00-20.00) Ratio Glucose 176 H (74-99) mg/dL Total Protein (6.2-8.2) g/dL Albumin (3.8-4.9) g/dL 02/28/21 Range/Units 06:28 RBC (4.30-5.90) m/uL Hgb (13.0-17.5) gm/dL Hct (39.0-53.0) % Plt Count (150-450) k/uL Lymphocytes # (1.0-4.8) k/uL Anion Gap 9.30 L (10.00-18.00) mmol/L BUN/Creatinine Ratio 11.88 L (12.00-20.00) Ratio Glucose (74-99) mg/dL Total Protein 5.1 L (6.2-8.2) g/dL Albumin 3.5 L (3.8-4.9) g/dL Assessment and Plan (1) Mantle cell lymphoma Narrative/Plan: Admit for CIVI cytarabine x 48 hours-will finish tomorrow Home meds reconciled Telemetry-ok to DC>24 hours since rituxan Supportive meds Frequent ambulation Daily wt GI/DVT prophylaxis Labs daily Follow up daily GCSF on DC Cont pred forte eye drops on DC-taper off and complete bottle Evusheld injections Current Visit: Yes Status: Acute Priority: High Code(s): C83.10 - MANTLE CELL LYMPHOMA, UNSPECIFIED SITE SNOMED Code(s): 874351447 Plan: Doctor attests: I performed a history and physical examination of this patient, developed impression and plan of care, discussed with dictator. I agree with dictators note, documented as a scribe.
[2021-02-28] MEDS: ENOXAPARIN 40 MG/0.4 ML SYRINGE SQ SCH (12:31)
[2021-02-28] MEDS: SODIUM CHLORIDE 0.9% 1,000 ML IV SCH ×2 (12:38→22:09)
[2021-02-28] MEDS: ONDANSETRON 16 MG in SODIUM CHLORIDE 0.9% 50 ML IVPB SCH (15:43)
[2021-02-28] MEDS: ATORVASTATIN 10 MG TAB PO SCH (22:09)
[2021-02-28] MEDS: MULTIVITAMINS, THERA 1 EACH TAB PO SCH (22:09)
[2021-03-01] MEDS: CYTARABINE IV SCH (03:45)
[2021-03-01] MEDS: SODIUM CHLORIDE 0.9% IV SCH (03:45)
[2021-03-01] MEDS: SALT AND SODA MOUTHWASH 1,000 ML PO SCH ×2 (03:45→07:38)
[2021-03-01] MEDS: SODIUM CHLORIDE 0.9% 1,000 ML IV SCH (07:44)
[2021-03-01] MEDS: prednisoLONE ACETATE 1% OPHTH DROPS 5 ML BTL BOTH EYES SCH (07:45)
[2021-03-01] MEDS ORDERED: NON FORMULARY DRUG IM ONE (08:00)
[2021-03-01 08:24] VITALS: BP 145/82; PULSE 67; RESP 13; TEMP 97.8
[2021-03-01 08:36] LABS: Basophils % (A) 0 %; Eosinophils % (A) 0 %; HCT 35.2 % (39.0-53.0); Lymphocytes # (A) 0.1 k/uL (1.0-4.8); Lymphocytes % (A) 3 %; MCV 88.2 fL (80.0-100.0); Mean Platelet Volume 7.2; Monocytes # (A) 0.3 k/uL (0-1.0); Monocytes % (A) 6 %; Neutrophils # (A) 3.8 k/uL (1.3-7.7); Neutrophils % (A) 90 %; Platelet Count 367 k/uL (150-450); RBC 3.99 m/uL (4.30-5.90); RDW 14.9 % (11.5-15.5); WBC 4.3 k/uL (3.8-10.6)
[2021-03-01 08:51] LABS: ALT 33 U/L (4-49); AST 27 U/L (17-59); African American GFR (CKD) >90 (>60 ml/min/1.73 sqM); Albumin 3.7 g/dL (3.5-5.0); Albumin/Globulin Ratio 1.4; Alkaline Phosphatase 44 U/L (38-126); Anion Gap 5 mmol/L; Blood Urea Nitrogen 13 mg/dL (9-20); Carbon Dioxide 26 mmol/L (22-30); Chloride 106 mmol/L (98-107); Globulin 2.6 g/dL; Glucose 101 mg/dL (74-99); Non-African American GFR(CKD) >90 (>60 ml/min/1.73 sqM); Phosphorus 4.4 mg/dL (2.5-4.5); Sodium 137 mmol/L (137-145); Total Bilirubin 0.8 mg/dL (0.2-1.3); Total Protein 6.3 g/dL (6.3-8.2); Uric Acid 4.1 mg/dL (3.5-8.5)
[2021-03-01] MEDS: ENOXAPARIN 40 MG/0.4 ML SYRINGE SQ SCH (09:05)
--- NOTE | 2021-03-01 10:05 | P.DS ---
Providers Date of admission: 02/27/21 13:04 Expected date of discharge: 03/01/21 Attending physician: Leodan Burger Primary care physician: Rigo Arroyo - Discharge Diagnosis(es) (1) Mantle cell lymphoma Pt admitted for cycle 2/3 CIVI cytarabine, tolerated treatment will. GCSF sched for tomorrow. F/U wice a week in ofc for labs, conservative transfusions PRN Current Visit: Yes Status: Acute Priority: High Hospital Course: Pt admitted for cycle 2/3 CIVI cytarabine. His stay was thankfully uneventful, no fever, oral irritation, N,V, abd c/o, acute changes in bowel or bladder habits, he remained active and tolerated oral intake. No physical c/o today, plan for DC. Assessment: WD, WN, NAD, A&OX4, oral mucosa free thrush or ulcer, BBS CTA, chest expansion symmetrical, abd soft, non tender, BS +, no LAD, rt groin thickened ligament palpated, no swelling in the legs, pt can ambulate independently, strength equal bilaterally. Health Concerns: none Procedures: CIVI cytarabine Patient Condition at Discharge: Stable Plan - Discharge Summary New Discharge Prescriptions: No Action Simvastatin [Zocor] 10 mg PO HS Multivitamins, Thera [Multivitamin (formulary)] 1 tab PO HS Discharge Medication List Multivitamins, Thera [Multivitamin (formulary)] 1 tab PO HS 01/23/21 [History] Simvastatin [Zocor] 10 mg PO HS 01/23/21 [History] Follow up Appointment(s)/Referral(s): Leodan Burger MD [STAFF PHYSICIAN] - 03/02/21 2:00 pm (This appt is for GCSF injection. Be sure to make more appts for labs and f/u with Dr. Burger) Activity/Diet/Wound Care/Special Instructions: Cont pred forte eye drops on DC-taper off (1 drop each eye 3 times a day for 3 days, 1 drop each eye twice a day for 3 days then 1 drop each eye daily until bottle completed). Diet as tolerated Activity as tolerated [place] fluids Report to Oncologist temp 100.5F or higher Discharge Disposition: HOME SELF-CARE Pending Studies Pending Results: none Dr attests: I have performed H&P, seen and examined pt, developed impression and plan of care. Discussed with dictator. Agree with dictation, documented as a scribe
== END 2021-03-01 11:56 | disposition home or self-care (01) | DRG 847 ==
LOC: 5NMEDONC 13:04
PROVIDERS: ADMIT Internal Medicine Hematology & Oncology; ATTEND Internal Medicine Hematology & Oncology
DX: Z51.11 Encounter for antineoplastic chemotherapy (principal); C83.18 Mantle cell lymphoma, lymph nodes of multiple sites; E78.5 Hyperlipidemia, unspecified; G47.33 Obstructive sleep apnea (adult) (pediatric); K21.9 Gastro-esophageal reflux disease without esophagitis; Z79.899 Other long term (current) drug therapy; Z87.19 Personal history of other diseases of the digestive system; Z86.79 Personal history of other diseases of the circulatory system; Z98.890 Other specified postprocedural states; Z82.0 Family history of epilepsy and other diseases of the nervous system; Z82.49 Family history of ischemic heart disease and other diseases of the circulatory system
CPT/HCPCS: 80053; 84100; 84550; 85025

== ENCOUNTER 2021-03-27 13:50 | Inpatient (IN) | payer OTHER ==
[2021-03-27 15:48] LABS: ALT 27 U/L (4-49); AST 28 U/L (17-59); African American GFR (CKD) >90 (>60 ml/min/1.73 sqM); Albumin 4.1 g/dL (3.5-5.0); Albumin/Globulin Ratio 1.6; Alkaline Phosphatase 58 U/L (38-126); Anion Gap 7 mmol/L; Blood Urea Nitrogen 12 mg/dL (9-20); Calcium 9.3 mg/dL (8.4-10.2); Carbon Dioxide 27 mmol/L (22-30); Chloride 106 mmol/L (98-107); Globulin 2.5 g/dL; Glucose 190 mg/dL (74-99); Non-African American GFR(CKD) 89 (>60 ml/min/1.73 sqM); Potassium 4.3 mmol/L (3.5-5.1); Sodium 140 mmol/L (137-145); Total Bilirubin 0.5 mg/dL (0.2-1.3); Total Protein 6.6 g/dL (6.3-8.2); Uric Acid 4.4 mg/dL (3.5-8.5)
[2021-03-27 16:20] LABS: Anisocytosis Slight; Basophils % (A) 0 %; Eosinophils % (A) 1 %; HCT 34.9 % (39.0-53.0); HGB 11.8 gm/dL (13.0-17.5); Lymphocytes # (A) 0.4 k/uL (1.0-4.8); Lymphocytes % (A) 5 %; MCH 31.6 pg (25.0-35.0); MCHC 33.8 g/dL (31.0-37.0); Macrocytosis Slight; Mean Platelet Volume 7.1; Monocytes # (A) 0.2 k/uL (0-1.0); Monocytes % (A) 3 %; Neutrophils # (A) 6.3 k/uL (1.3-7.7); Neutrophils % (A) 91 %; Platelet Count 523 k/uL (150-450); RBC 3.73 m/uL (4.30-5.90); RDW 18.8 % (11.5-15.5); WBC 6.9 k/uL (3.8-10.6)
[2021-03-27 17:13] LABS: MCV 93.5 fL (80.0-100.0)
[2021-03-27] MEDS: ONDANSETRON 16 MG in SODIUM CHLORIDE 0.9% 50 ML IVPB SCH (17:20)
[2021-03-27] MEDS: prednisoLONE ACETATE 1% OPHTH DROPS 5 ML BTL BOTH EYES SCH ×3 (17:20→21:15)
[2021-03-27] MEDS: SODIUM CHLORIDE 0.9% 1,000 ML IV SCH (17:20)
[2021-03-27] MEDS ORDERED: diphenhydrAMINE 25 MG CAP PO PRN (17:24)
[2021-03-27] MEDS ORDERED: LOPERAMIDE 2 MG CAP PO PRN (17:24)
[2021-03-27] MEDS ORDERED: SENNOSIDES-DOCUSATE SODIUM 1 EACH TAB PO PRN (17:24)
[2021-03-27] MEDS ORDERED: MAGNESIUM HYDROXIDE 2,400 MG/10 ML CUP PO PRN (17:24)
[2021-03-27] MEDS ORDERED: ACETAMINOPHEN TAB 500 MG TAB PO PRN (17:24)
[2021-03-27] MEDS ORDERED: ONDANSETRON 4 MG/2 ML VIAL IVP PRN (17:27)
--- NOTE | 2021-03-27 17:29 | P.HPIM ---
History of Present Illness H&P Date: 03/27/21 Chief Complaint: CIVI cytarabine, final cycle #3 Mr. Jarvis is a very pleasant pt of Dr. Burger who presented with enlarging left inguinal node x 1 year. U/S of the groin identified a large left inguinal node. 09/27/20 he had excisional biopsy which was positive for mantle cell lymphoma, diffuse proliferation, positive for CD5, CD 20, BCL2, cyclin D1, SOX 11, KI-67 35%. 10/06/20 CT CAP revealed mediastinal nodes up to 3 cm, bilateral axillary nodes up to 2 cm, retroperitoneal nodes up to 3 cm surrounding IVC extending into both inguinal regions, CT of neck bilateral supraclavicular nodes up to 1.7 cm, multiple other enlarged bilateral neck nodes, 2 cm in submandibular area. 10/03/20, CBC, CMP, LDH, uric acid, hepatitis panel were all normal. 10/21/20 PET positive adenopathies above and below diaphragm. 11/03/20 he started BR regimen, which he completed 3 and now he is going to complete 3 cycles of Rituxan/cytarabine. He did have treatment f/u PET 01/09/2021 that showed significant improvement in LAD. He was admitted 3 weeks ago for 48 hours of CIVI cytarabine. He has been seen by BMT in [facility] with plans for SCT. He did well with no significant complications post treatment last cycle. He is here for cycle #3. He has no physical c/o on a 10 point ROS. Review of Systems 10 point ROS is neg except as stated in HPI Past Medical History Past Medical History: Cancer, GERD/Reflux, Hyperlipidemia, Sleep Apnea/CPAP/BIPAP, Supraventricular Tachycardia (SVT) Additional Past Medical History / Comment(s): 09/2020 diagnosed with mantle cell lymphoma treating with chemotherapy, constipation with previous chemo and nausea, NADIA with Cpap, SVT, History of Any Multi-Drug Resistant Organisms: None Reported Additional Past Surgical History / Comment(s): L groin lymph node biopsy, L inguinal hernia repair, R knee arthroscopic surgery, colonoscopy. Additional Past Anesthesia/Blood Transfusion Reaction / Comment(s): Feels fuzzy for a week after. Past Psychological History: No Psychological Hx Reported Additional Psychological History / Comment(s): Pt resides with his spouse. He is independent. Smoking Status: Never smoker Past Alcohol Use History: None Reported Past Drug Use History: None Reported - Past Family History Father Additional Family Medical History / Comment(s): Father had an enlarged heart and from this at the age of 60 yrs. Mother Family Medical History: Dementia Additional Family Medical History / Comment(s): Mother from dementia at the age of 90yrs. Medications and Allergies Home Medications Medication Instructions Recorded Confirmed Type Multivitamins, Thera [Multivitamin 1 tab PO HS 01/23/21 03/27/21 History (formulary)] Simvastatin [Zocor] 5 mg PO HS 01/23/21 03/27/21 History Allergies Allergy/AdvReac Type Severity Reaction Status Date / Time No Known Allergies Allergy Verified 03/27/21 14:42 Physical Exam Vitals: Vital Signs Temp Pulse Resp BP Pulse Ox 03/27/21 14:36 98.2 F 82 16 136/79 96 Intake and Output 03/26/21 03/27/21 03/27/21 22:59 06:59 14:59 Other: Weight 78.18 kg - Constitutional General appearance: average body habitus, cooperative, no acute distress - EENT Eyes: anicteric sclerae, EOMI ENT: hearing grossly normal, normal oropharynx - Neck Neck: no lymphadenopathy - Respiratory Respiratory: bilateral: CTA - Cardiovascular Rhythm: regular Heart sounds: normal: S1, S2 Abnormal Heart Sounds: no systolic murmur, no diastolic murmur, no rub, no S3 Gallop, no S4 Gallop, no click, no other leg Peripheral Edema: bilateral: None - Gastrointestinal General gastrointestinal: no absent bowel sounds, no decreased bowel sounds, no distended, no hepatomegaly, no hyperactive bowel sounds, normal bowel sounds, no organomegaly, no rigid, no scaphoid, soft, no splenomegaly, no tenderness, no umbilical hernia, no ventral hernia - Integumentary Integumentary: normal - Neurologic Neurologic: CNII-XII intact - Musculoskeletal Musculoskeletal: strength equal bilaterally - Psychiatric Psychiatric: A&O x's 3, appropriate affect, intact judgment & insight Results CBC & Chem 7: 03/27/21 15:11 03/27/21 15:11 Thrombosis Risk Factor Assmnt - DVT/VTE Prophylaxis DVT/VTE Prophylaxis: Pharmacologic Prophylaxis ordered Assessment and Plan (1) Mantle cell lymphoma Narrative/Plan: 48 hour admit for high dose cytarabine Pred eye drops Home meds reconciled DVT/GI prophylaxis Labs daily Frequent ambulation Diet as tolerated [place] fluids Daily weight IVF Supportive medications I&O Daily f/u Current Visit: Yes Status: Acute Priority: High Code(s): C83.10 - MANTLE CELL LYMPHOMA, UNSPECIFIED SITE SNOMED Code(s): 850290678
[2021-03-27] MEDS: SODIUM CHLORIDE 0.9% IV SCH (17:51)
[2021-03-27] MEDS: CYTARABINE IV SCH (17:51)
[2021-03-27] MEDS: SALT AND SODA MOUTHWASH 1,000 ML PO SCH (19:55)
[2021-03-28] MEDS: SALT AND SODA MOUTHWASH 1,000 ML PO SCH ×6 (00:17→23:55)
[2021-03-28] MEDS: SODIUM CHLORIDE 0.9% 1,000 ML IV SCH ×4 (03:29→23:57)
[2021-03-28] MEDS: SODIUM CHLORIDE 0.9% IV SCH ×2 (04:07→16:37)
[2021-03-28] MEDS: CYTARABINE IV SCH ×2 (04:07→16:37)
[2021-03-28 10:26] LABS: Basophils # (A) 0.04 X 10*3/uL (0.00-0.10); Basophils % (A) 0.8 %; Eosinophils # (A) 0.07 X 10*3/uL (0.04-0.35); Eosinophils % (A) 1.4 %; HCT 29.6 % (39.6-50.0); HGB 9.6 g/dL (13.0-17.0); Immature Grans, Automated 0.4 %; Lymphocytes # (A) 0.59 X 10*3/uL (0.90-5.00); Lymphocytes % (A) 11.7 %; MCH 30.3 pg (27.0-32.0); MCHC 32.4 g/dL (32.0-37.0); MCV 93.4 fL (80.0-97.0); Mean Platelet Volume 9.5 fL (9.5-12.2); Monocytes # (A) 0.66 X 10*3/uL (0.20-1.00); Monocytes % (A) 13.1 %; NRBC Per 100 WBC 0 /100 WBCS (0.0-0.0); Neutrophils # (A) 3.67 X 10*3/uL (1.80-7.70); Neutrophils % (A) 72.6 %; Platelet Count 393 X 10*3/uL (140-440); RBC 3.17 X 10*6/uL (4.40-5.60); RDW 19.2 % (11.5-14.5); WBC 5.05 X 10*3/uL (4.50-10.00)
[2021-03-28] MEDS: FAMOTIDINE 20 MG/2 ML VIAL IV SCH (10:27)
[2021-03-28] MEDS: prednisoLONE ACETATE 1% OPHTH DROPS 5 ML BTL BOTH EYES SCH ×4 (10:28→22:00)
[2021-03-28] MEDS: ENOXAPARIN 40 MG/0.4 ML SYRINGE SQ SCH (10:30)
[2021-03-28 10:33] LABS: Albumin 3.7 g/dL (3.8-4.9); Albumin/Globulin Ratio 2.24 (1.60-3.17); Anion Gap 10.1 mmol/L (10.00-18.00); BUN/Creat Ratio 12.79 Ratio (12.00-20.00); Blood Urea Nitrogen 10.5 mg/dL (9.0-27.0); Calcium 8.7 mg/dL (8.7-10.3); Carbon Dioxide 23.8 mmol/L (20.0-27.5); Globulin 1.6 g/dL (1.6-3.3); Non-African American GFR(CKD) 94.1 (60.0-200.0); Phosphorus 4.8 mg/dL (2.4-5.1); Potassium 4.4 mmol/L (3.5-5.5); Total Bilirubin 0.4 mg/dL (0.30-1.20); Total Protein 5.3 g/dL (6.2-8.2); Uric Acid 4.7 mg/dL (3.7-8.7)
[2021-03-28] MEDS ORDERED: DEXAMETHASONE SOD PHOSPHATE 10 MG/ML 1 ML VIAL IVP ONE (14:00)
[2021-03-28] MEDS ORDERED: FAMOTIDINE 20 MG/2 ML VIAL IVP ONE (14:00)
--- NOTE | 2021-03-28 15:43 | P.PN ---
Subjective Progress Note Date: 03/28/21 Principal diagnosis: Foll In f/u pt is walking the halls. He denies any uncontrolled side effects, no vision changes. No questions or concerns at this time Objective - Vital Signs Vital signs: Vital Signs Temp 98.5 F 03/28/21 11:16 Pulse 82 03/28/21 11:16 Resp 17 03/28/21 11:16 BP 125/81 03/28/21 11:16 Pulse Ox 96 03/28/21 11:16 Intake & Output 03/27/21 03/28/21 03/28/21 18:59 06:59 18:59 Intake Total 480 200 Balance 480 200 Weight 78.18 kg 79 kg Intake: Oral 480 200 Other: Voiding Method Toilet # Voids 1 1 - Constitutional General appearance: Present: average body habitus, cooperative, no acute distress - EENT Eyes: Present: anicteric sclerae, EOMI ENT: Present: hearing grossly normal, normal oropharynx - Respiratory Respiratory: bilateral: CTA - Cardiovascular Rhythm: regular Heart sounds: normal: S1, S2 Abnormal Heart Sounds: Absent: systolic murmur, diastolic murmur, rub, S3 Gallop, S4 Gallop, click, other - Peripheral edema leg Peripheral Edema: bilateral: None - Gastrointestinal General gastrointestinal: Present: normal bowel sounds, soft - Integumentary Integumentary: Present: normal - Neurologic Neurologic: Present: CNII-XII intact - Musculoskeletal Musculoskeletal: Present: strength equal bilaterally - Psychiatric Psychiatric: Present: A&O x's 3, appropriate affect, intact judgment & insight - Labs CBC & Chem 7: 03/28/21 06:39 03/28/21 06:39 Labs: Abnormal Lab Results - Last 24 Hours (Table) 03/27/21 03/27/21 03/28/21 Range/Units 15:11 15:11 06:39 RBC 3.73 L 3.17 L (4.30-5.90) m/uL Hgb 11.8 L 9.6 L (13.0-17.5) gm/dL Hct 34.9 L 29.6 L (39.0-53.0) % RDW 18.8 H 19.2 H (11.5-15.5) % Plt Count 523 H (150-450) k/uL Lymphocytes # 0.4 L 0.59 L (1.0-4.8) k/uL Glucose 190 H (74-99) mg/dL Total Protein (6.2-8.2) g/dL Albumin (3.8-4.9) g/dL 03/28/21 Range/Units 06:39 RBC (4.30-5.90) m/uL Hgb (13.0-17.5) gm/dL Hct (39.0-53.0) % RDW (11.5-15.5) % Plt Count (150-450) k/uL Lymphocytes # (1.0-4.8) k/uL Glucose (74-99) mg/dL Total Protein 5.3 L (6.2-8.2) g/dL Albumin 3.7 L (3.8-4.9) g/dL Assessment and Plan (1) Mantle cell lymphoma Narrative/Plan: 48 hour admit for high dose cytarabine-should complete tomorrow. Pred eye drops DVT/GI prophylaxis Labs daily Frequent ambulation-pt doing great! Diet as tolerated [place] fluids Daily weight IVF Supportive medications I&O Daily f/u Current Visit: Yes Status: Acute Priority: High Code(s): C83.10 - MANTLE CELL LYMPHOMA, UNSPECIFIED SITE SNOMED Code(s): 883052372 Plan: Doctor attests: I performed a history and physical examination of this patient, developed impression and plan of care, discussed with dictator. I agree with dictators note, documented as a scribe.
[2021-03-28] MEDS: ONDANSETRON 16 MG in SODIUM CHLORIDE 0.9% 50 ML IVPB SCH (16:24)
[2021-03-29 00:01] VITALS: TEMP 97.7
[2021-03-29] MEDS: SODIUM CHLORIDE 0.9% IV SCH (04:10)
[2021-03-29] MEDS: CYTARABINE IV SCH (04:10)
[2021-03-29 04:20] VITALS: RESP 18
[2021-03-29] MEDS: SALT AND SODA MOUTHWASH 1,000 ML PO SCH (05:57)
[2021-03-29 07:41] VITALS: BP 152/82; PULSE 69
[2021-03-29] MEDS: FAMOTIDINE 20 MG/2 ML VIAL IV SCH (10:10)
[2021-03-29 10:11] LABS: Basophils # (A) 0.02 X 10*3/uL (0.00-0.10); Basophils % (A) 0.5 %; Eosinophils # (A) 0 X 10*3/uL (0.04-0.35); Eosinophils % (A) 0 %; HCT 28.4 % (39.6-50.0); HGB 9.4 g/dL (13.0-17.0); Immature Grans, Automated 0.3 %; Lymphocytes # (A) 0.17 X 10*3/uL (0.90-5.00); Lymphocytes % (A) 4.5 %; MCH 30.2 pg (27.0-32.0); MCHC 33.1 g/dL (32.0-37.0); MCV 91.3 fL (80.0-97.0); Mean Platelet Volume 9.7 fL (9.5-12.2); Monocytes # (A) 0.37 X 10*3/uL (0.20-1.00); Monocytes % (A) 9.8 %; NRBC Per 100 WBC 0 /100 WBCS (0.0-0.0); Neutrophils % (A) 84.9 %; Platelet Count 358 X 10*3/uL (140-440); RBC 3.11 X 10*6/uL (4.40-5.60); RDW 18.7 % (11.5-14.5); WBC 3.77 X 10*3/uL (4.50-10.00)
[2021-03-29] MEDS: prednisoLONE ACETATE 1% OPHTH DROPS 5 ML BTL BOTH EYES SCH (10:11)
[2021-03-29] MEDS: ENOXAPARIN 40 MG/0.4 ML SYRINGE SQ SCH (10:12)
[2021-03-29 10:23] LABS: Phosphorus 4.6 mg/dL (2.4-5.1)
[2021-03-29 10:25] LABS: African American GFR (CKD) 116.4 (60.0-200.0); Albumin 3.8 g/dL (3.8-4.9); Albumin/Globulin Ratio 2.24 (1.60-3.17); Anion Gap 10.5 mmol/L (10.00-18.00); BUN/Creat Ratio 18.14 Ratio (12.00-20.00); Blood Urea Nitrogen 12.7 mg/dL (9.0-27.0); Calcium 8.6 mg/dL (8.7-10.3); Carbon Dioxide 24.5 mmol/L (20.0-27.5); Globulin 1.7 g/dL (1.6-3.3); Non-African American GFR(CKD) 100.4 (60.0-200.0); Total Bilirubin 0.6 mg/dL (0.30-1.20); Total Protein 5.5 g/dL (6.2-8.2)
--- NOTE | 2021-03-29 11:19 | P.DS ---
Providers Date of admission: 03/27/21 13:50 Expected date of discharge: 03/29/21 Attending physician: Leodan Burger Primary care physician: Rigo Arroyo - Discharge Diagnosis(es) (1) Mantle cell lymphoma Current Visit: Yes Status: Acute Priority: High Hospital Course: Admitted for CIVI high dose cytarabine, #3/3. He will be seen for BMT in the near future. VSS throughout stay, no fevers, drop in Hgb noted, he will cont to have CBC monitoring out pt. He walked daily, multiple times. Denies eye irritation, oral irritation, SOB, cough, pain, he feels he will have a BM when he goes home, mild BLE swelling. Assessment: WD,WN,NAD, A&OX4, oral mucosa freee of thrush, lesions, BBS CTA, BS+, no abd distension, mild, non-pitting pedal edema Health Concerns: none Pertinent Studies: daily labs Procedures: none Patient Condition at Discharge: Stable Plan - Discharge Summary Discharge Rx Participant: No New Discharge Prescriptions: No Action Simvastatin [Zocor] 5 mg PO HS Multivitamins, Thera [Multivitamin (formulary)] 1 tab PO HS Discharge Medication List Multivitamins, Thera [Multivitamin (formulary)] 1 tab PO HS 01/23/21 [History] Simvastatin [Zocor] 5 mg PO HS 01/23/21 [History] Follow up Appointment(s)/Referral(s): Leodan Burger MD [STAFF PHYSICIAN] - 03/30/21 2:00 pm Discharge Disposition: HOME SELF-CARE Pending Studies Pending Results: none attests: I have seen and examined, performed H&P, developed impression and plan of care. Discussed with dictator, agree with dictation, documented as a scribe.
== END 2021-03-29 12:21 | disposition home or self-care (01) | DRG 847 ==
LOC: 5NMEDONC 13:50
PROVIDERS: ADMIT Internal Medicine Hematology & Oncology; ATTEND Internal Medicine Hematology & Oncology
DX: Z51.11 Encounter for antineoplastic chemotherapy (principal); C83.18 Mantle cell lymphoma, lymph nodes of multiple sites; B37.9 Candidiasis, unspecified; E78.5 Hyperlipidemia, unspecified; Z92.21 Personal history of antineoplastic chemotherapy
CPT/HCPCS: 80053; 84100; 84550; 85025

== ENCOUNTER 2021-04-17 11:03 | Day surgery (SDC) | payer OTHER ==
[2021-04-12 15:59] VITALS: BMI 27.4
[~2021-04-17 11:03] MED LIST: LACTATED RINGERS 1,000 ML IV SCH; LIDOCAINE 1% (10MG/ML) FOR IV START INTRADERMA PRN
[2021-04-17] MEDS ORDERED: LACTATED RINGERS 1,000 ML IV ONE ×2 (11:20)
[2021-04-17 11:46] VITALS: RESP 16; TEMP 97.6
[2021-04-17] MEDS ORDERED: LIDOCAINE 1% INJ 10MG/ML (20 ML MDV) ONE (12:12)
[2021-04-17] MEDS ORDERED: PROPOFOL 10 MG/ML 20 ML VIAL IV ONE (12:12)
[2021-04-17 12:51] VITALS: BP 134/84; PULSE 69
[2021-04-17 12:59] LABS: Anisocytosis Slight; HCT 31.5 % (39.0-53.0); HGB 10.7 gm/dL (13.0-17.5); MCH 32.9 pg (25.0-35.0); MCV 96.6 fL (80.0-100.0); Macrocytosis Slight; Mean Platelet Volume 8.1; Platelet Count 729 k/uL (150-450); RBC 3.26 m/uL (4.30-5.90); RDW 19.9 % (11.5-15.5); Reticulocyte % 4.7 % (0.5-2.0)
--- NOTE | 2021-04-17 13:12 | PCN ---
PROCEDURE NOTE DATE OF PROCEDURE: 04/17/2021 SURGICAL PROCEDURE: Bone marrow aspirate and biopsy. INDICATION: Mantle cell lymphoma. PROCEDURE DESCRIPTION: After obtaining consent from the patient, the procedure was performed in the endoscopy suite under general anesthesia. The patient was put in the left lateral decubitus position. The right posterior superior iliac crest was localized. The skin was prepped with ChloraPrep and all sterile procedures were followed. Two mL of 2% xylocaine was used for local anesthetic. Monoject needle was inserted. About 12 mL aspirate and 1.5 cm core biopsy was obtained without any difficulties. Pressure was applied afterwards. There was negligible blood loss. Patient tolerated procedure very well without any immediate complications. MMODL / IJN: [id number] /
[2021-04-17 14:09] LABS: Metamyelocytes % 1 %; Neutrophils % (M) 79 %; Nucleated Red Blood Cells 2 /100 WBC (0-0); Total Cells Counted 200
[2021-04-17 14:10] LABS: Lymphocytes # (M) 0.39 k/uL (1.0-4.8); Monocytes # (M) 1.37 k/uL (0-1.0); Neutrophils # (M) 7.74 k/uL (1.3-7.7); Polychromasia Present; WBC 9.8 k/uL (3.8-10.6)
== END 2021-04-17 13:16 | disposition home or self-care (01) ==
LOC: OR 11:03
PROVIDERS: ATTEND Internal Medicine Hematology & Oncology
DX: C83.10 Mantle cell lymphoma, unspecified site (principal); E78.5 Hyperlipidemia, unspecified; K21.9 Gastro-esophageal reflux disease without esophagitis; I47.1 Supraventricular tachycardia
CPT/HCPCS: 38222; 85025; 85045; J2001; J2704

== ENCOUNTER → 2021-04-28 | Outpatient (CLI) | payer OTHER ==
--- NOTE | 2021-05-01 06:35 | PE ---
EXAMINATION TYPE: PET CT fusion skull to thigh DATE OF EXAM: 04/28/2021 COMPARISON: Prior PET/CT January 13, 2021 and older study October 21, 2020 HISTORY: Mantle cell lymphoma diagnosed excision biopsy left groin September 27, 2020 TECHNIQUE: Following the intravenous administration of 10.06 mCi of F-18 FDG, whole body images are performed from the skull base to the midthigh. Images are reviewed on the computer in the coronal, a xial, and sagittal planes. Reconstructed rotating images are created on independent workstation and reviewed on the computer. A localization and attenuation correction CT is performed in conjunction with the PET scan. The blood glucose level equals 88. SCAN: Subsequent Scan FINDINGS: SKULL BASE AND NECK: No new or recurrent areas of abnormal hypermetabolic and/or enlarged lymph nodes identified on current study THORAX: No new or residual areas of abnormal enlarged or hypermetabolic lymph nodes seen on current study. ABDOMEN AND PELVIS: No new focal or diffuse hypermetabolic uptake in the liver or spleen. Normal excretion is seen. Uptake along course of left ureter noted current study. Improved small focu s of residual hypermetabolic uptake along the medial aspect of the left groin scar axial image 218 re skinny present, the max SUV is less than 2.5 versus 5.78 on prior study. No new areas of abnormal hype rmetabolic uptake. OSSEOUS STRUCTURES: No new areas of abnormal hypermetabolic uptake. OTHER CT: Coronary artery calcification is redemonstrated. Enlarged bilateral pulmonary arteries rede monstrated consistent with underlying pulmonary artery hypertension. Stable mild cardiomegaly. Mildly enlarged prostate gland redemonstrated. Scattered adjacent pelvic phleboliths again seen. IMPRESSION: No new areas of abnormal hypermetabolic uptake.
== END | disposition home or self-care (01) ==
LOC: RADPETMAIN 12:40
PROVIDERS: ATTEND Internal Medicine Hematology & Oncology
DX: C83.18 Mantle cell lymphoma, lymph nodes of multiple sites (principal)
CPT/HCPCS: 78815; A9552

== ENCOUNTER → 2021-05-04 | Outpatient (CLI) | payer OTHER ==
[~2021-05-04] MED LIST changes: -LACTATED RINGERS 1,000 ML IV SCH; -LIDOCAINE 1% (10MG/ML) FOR IV START INTRADERMA PRN; +TIXAGEVIMAB/CILGAVIMAB (EUA) 300 MG/3 ML COMBO.PKG IM NR
[2021-05-04 11:45] VITALS: RESP 16; TEMP 98.3
[2021-05-04 12:42] VITALS: BP 136/84; PULSE 76
== END ==
LOC: PROCWHC3 11:25
PROVIDERS: ATTEND Internal Medicine Hematology & Oncology
DX: C83.18 Mantle cell lymphoma, lymph nodes of multiple sites (principal)
CPT/HCPCS: Q0220; M0220

== ENCOUNTER → 2021-08-29 | Outpatient (CLI) | payer OTHER ==
[2021-08-29 11:56] VITALS: RESP 16; TEMP 98.5
[2021-08-29 12:36] VITALS: BP 137/88; PULSE 66
== END ==
LOC: PROCWHC3 11:29
PROVIDERS: ATTEND Internal Medicine Hematology & Oncology
DX: Z23 Encounter for immunization (principal)
CPT/HCPCS: Q0220; M0220

== ENCOUNTER → 2022-03-02 | Outpatient (CLI) | payer OTHER ==
--- NOTE | 2022-03-04 10:17 | PE ---
EXAMINATION TYPE: PET CT fusion skull to thigh DATE OF EXAM: 03/02/2022 CLINICAL INDICATION:Male, 66 years old with history of C83.18; TECHNIQUE: Following the intravenous administration of 10.9 mCi of F-18 FDG, whole body images are performed from the skull base to the midthigh. Images are reviewed on the computer in the coronal, a xial, and sagittal planes. Reconstructed rotating images are created on independent workstation and reviewed on the computer. A non-contrast CT is performed in conjunction with the PET scan. Glucose level 101 mg/dL COMPARISON: CT None, PET/CT most recent 04/28/2021, FINDINGS: Mediastinal SUV mean is 1.5. Hepatic parenchyma SUV mean is 2.2. SKULL BASE AND NECK: No suspicious radiotracer activity. CHEST, MEDIASTINUM, AND HILAR REGION: No suspicious radiotracer activity. Focal uptake in the epidermis of the right anterior shoulder max SUV 3.5 ABDOMEN AND PELVIS: No suspicious radiotracer activity. OSSEOUS STRUCTURES: No suspicious radiotracer activity. OTHER CT: Mild cardiomegaly, mild bilateral gynecomastia. Mild coronary artery atherosclerosis. Remot e right superior pubic ramus fracture. IMPRESSION: 1. No suspicious radiotracer activity. 2. Right anterior shoulder mild epidermal uptake correlate with dermatologic evaluation for infectio n.
== END | disposition home or self-care (01) ==
LOC: RADPETMAIN 08:00
PROVIDERS: ATTEND Internal Medicine Hematology & Oncology
DX: C83.18 Mantle cell lymphoma, lymph nodes of multiple sites (principal)
CPT/HCPCS: 78815; A9552

== ENCOUNTER → 2022-08-09 | Outpatient (CLI) | payer MEDICARE, OTHER ==
--- NOTE | 2022-08-09 14:45 | MR ---
EXAMINATION TYPE: MR knee RT wo con DATE OF EXAM: 08/09/2022 COMPARISON: None HISTORY: 66-year-old male M2 5.562, Left knee pain, Hx of lymphoma TECHNIQUE: Multiplanar, multisequence imaging of the right knee is performed without IV contrast. FINDINGS: The ACL PCL appear intact. There is mild thickening and very mild edema on either side of the intact MCL fibers. Heterogeneous signal femoral attachment of the LCL proper. Intermediate inhomogeneous signal within t he popliteus tendon. LCL complex otherwise intact. There is an oblique tear that extends within the posterior horn of the medial meniscus to the junctio n with the meniscal body. Mild diffuse thinning of medial compartment articular cartilage. There is a tiny inner margin radial tear involving the body of the lateral meniscus. Mild diffuse thi nning of lateral compartment articular cartilage volume with a small 4 mm wide by 6 mm long moderate thickness chondral defect along the mid weightbearing aspect of the lateral femoral condyle. Extensor mechanism is intact with mild insertional tendinosis at the quadriceps tendon. Nonspecific anterior soft tissue swelling. Mild thinning of patellofemoral compartment articular cartilage without focal chondral defect. There is small joint effusion and tiny 1.6 cm Hameed's cyst. Normal popliteal artery anatomy in muscle bulk. No suspicious bone marrow replacement. IMPRESSION: 1. Grade 1 MCL sprain. Additional grade 1 sprain femoral attachment of the LCL proper. Mild popliteus tendinosis/contusion. 2. Oblique tear posterior horn medial meniscus extending to the junction with the meniscal body. 3. Tiny inner margin radial tear involving the body of the lateral meniscus. 4. Mild thinning of articular cartilage throughout the 3 compartments of the knee. In addition, there is a small 4 x 6 mm moderate thickness cartilage defect along the mid weightbearing aspect of the la teral femoral condyle. 5. Mild insertional quadriceps tendinosis. 6. Anterior soft tissue swelling, small joint effusion, and a tiny Hameed's cyst.
== END | disposition home or self-care (01) ==
LOC: RADMRIMAIN 07:31
PROVIDERS: ATTEND Orthopaedic Surgery
DX: S83.281A Other tear of lateral meniscus, current injury, right knee, initial encounter (principal); S80.01XA Contusion of right knee, initial encounter; S83.241A Other tear of medial meniscus, current injury, right knee, initial encounter; M71.21 Synovial cyst of popliteal space [Baker], right knee; M25.461 Effusion, right knee; X58.XXXA Exposure to other specified factors, initial encounter; Z85.72 Personal history of non-Hodgkin lymphomas

== ENCOUNTER → 2023-05-23 | Outpatient (CLI) | payer MEDICARE, OTHER ==
--- NOTE | 2023-05-26 14:28 | PE ---
EXAMINATION TYPE: PET CT fusion skull to thigh DATE OF EXAM: 05/23/2023 COMPARISON: 03/02/2022 Prior PET/CT: 03/02/2022 HISTORY: Mantle cell lymphoma TECHNIQUE: Following the intravenous administration of 9.2 mCi of F-18 FDG, whole body images are pe rformed from the skull base to the midthigh. Images are reviewed on the computer in the coronal, axi al, and sagittal planes. Reconstructed rotating images are created on independent workstation and re viewed on the computer. A localization and attenuation correction CT is performed in conjunction wi th the PET scan. DLP: 680.76 mGycm SCAN: Subsequent Blood glucose: 101 mg/dL Average Mediastinum SUV: 2.05 Average Liver SUV: 2.46 FINDINGS: NECK: No suspicious uptake THORAX: No suspicious uptake. Previous uptake along the right anterior lateral skin surface is not ev ident on the current exam ABDOMEN: No suspicious uptake PELVIS: No suspicious uptake OSSEOUS STRUCTURES: No suspicious uptake LOCALIZATION CT: Unremarkable COMPARISON: No significant interval change IMPRESSION: 1. No suspicious uptake to suggest recurrent or metastatic findings.
== END | disposition home or self-care (01) ==
LOC: RADPETMAIN 09:27
PROVIDERS: ATTEND Internal Medicine Hematology & Oncology
DX: C83.18 Mantle cell lymphoma, lymph nodes of multiple sites (principal)
CPT/HCPCS: 78815; A9552

== ENCOUNTER → 2023-06-04 | Outpatient (CLI) | payer MEDICARE, OTHER ==
[2023-06-04 14:40] VITALS: BP 151/88; PULSE 81; RESP 16; TEMP 98.6
--- NOTE | 2023-06-04 15:41 | P.SLEEP ---
History of Present Illness H&P Date: 06/04/23 67-year-old male patient coming in today regarding his obstructive sleep apnea. The patient was diagnosed having obstructive sleep apnea back in 2017. At that time, the patient was found to have moderately severe disease with an AHI of 21. Over the years, he has been successfully treated with a CPAP pressure of 7 cm of water. Note that the patient during the course of his illness, has been very compliant with CPAP therapy. He did not have a follow-up with me over the years. 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 The patient was treated with systemic chemotherapy followed by autologous bone marrow transplantation and this was successful. He seems to be disease-free at this point in time. The patient has no significant weight gain or weight loss. I checked the CPAP machine and the patient has been very compliant with CPAP therapy and based on a 30-day compliance check, the patient has been utilizing the machine every night and has been achieving more than 4 hours of usage 100% of the time. Has been averaging about 8.5 hours of CPAP use per night and is using the AirFit P10 nasal pillow and his AHI is down to 2.9 while on treatment without any significant air leaks. He is going to bed at around 10:30 PM waking up at 7 AM in the morning and is currently retired. No snoring while on his CPAP. His machine however its exceeded its motor life span and the patient is very much interested in updating his CPAP unit. No issues with urge to urinate during bedtime. No grinding of the teeth. No sleepwalking or sleep talking. No anxiety or panic attacks. No heartburn. No major hypersomnia or sleepiness during the day. No issues with memory and concentration. He is sleeping on his back and side. His weight has been stable. No vivid dreams. No sleep paralysis. No hallucinations. No cataplexy. No other complaints otherwise. Very much committed to use his CPAP machine. Review of Systems Constitutional: Reports as per HPI Eyes: denies as per HPI, denies blurred vision, denies bulging eye, denies decreased vision, denies diplopia, denies discharge, denies dry eye, denies irritation, denies itching, denies pain, denies photophobia, denies loss of peripheral vision, denies loss of vision, denies tunnel vision/blind spots Ears: deny: decreased hearing, ear discharge, earache, tinnitus Ears, nose, mouth and throat: Reports as per HPI Breasts: absent: as per HPI, gynecomastia Cardiovascular: Reports as per HPI Respiratory: Reports sleep apnea Gastrointestinal: Reports as per HPI Genitourinary: Reports as per HPI Musculoskeletal: Reports as per HPI Musculoskeletal: absent: ankle pain, ankle stiffness, ankle swelling, as per HPI, elbow pain, elbow stiffness, elbow swelling, foot pain, foot stiffness, foot swelling, hand pain, hand stiffness, hand swelling, hip pain, hip stiffness, hip swelling, knee pain, knee stiffness, knee swelling, shoulder pain, shoulder stiffness, shoulder swelling, wrist pain, wrist stiffness, wrist swelling Integumentary: Reports as per HPI Neurological: Reports as per HPI Psychiatric: Reports as per HPI Endocrine: Reports as per HPI Hematologic/Lymphatic: Reports as per HPI Allergic/Immunologic: Reports as per HPI Past Medical History Past Medical History: Cancer, GERD/Reflux, Hyperlipidemia, Sleep Apnea/CPAP/BIPAP, Supraventricular Tachycardia (SVT) Additional Past Medical History / Comment(s): 09/2020 diagnosed with mantle cell lymphoma treating with chemotherapy, constipation with previous chemo and nausea, NADIA with Cpap, SVT, ABDOMINAL HERNIA History of Any Multi-Drug Resistant Organisms: None Reported Additional Past Surgical History / Comment(s): , groin lymph node biopsy, L inguinal hernia repair, R knee arthroscopic surgery, colonoscopy, L WRIST SEVERED TENDON. Additional Past Anesthesia/Blood Transfusion Reaction / Comment(s): Feels fuzzy for a week after. Past Psychological History: No Psychological Hx Reported Additional Psychological History / Comment(s): Pt resides with his spouse. He is independent. Smoking Status: Former smoker Past Alcohol Use History: None Reported Past Drug Use History: None Reported - Past Family History Father Additional Family Medical History / Comment(s): Father had an enlarged heart and from this at the age of 60 yrs. Mother Family Medical History: Dementia Additional Family Medical History / Comment(s): Mother from dementia at the age of 90yrs. Medications and Allergies Home Medications Medication Instructions Recorded Confirmed Type Multivitamins, Thera [Multivitamin 1 tab PO HS 01/23/21 08/29/21 History (formulary)] Acyclovir 800 mg PO BID 08/29/21 08/29/21 History Micro-K 1 tab PO DAILY 08/29/21 08/29/21 History Allergies Allergy/AdvReac Type Severity Reaction Status Date / Time No Known Allergies Allergy Verified 08/29/21 11:37 Physical Exam Vitals: Vital Signs Temp Pulse Resp BP Pulse Ox 06/04/23 14:31 98.6 F 81 16 151/88 97 The patient appeared well nourished and normally developed. Vital signs as documented. Head exam is unremarkable. No scleral icterus or corneal arcus noted. Neck is without jugular venous distension, thyromegaly, or carotid bruits. Carotid upstrokes are brisk bilaterally. Lungs are clear to auscultation and percussion. Cardiac exam reveals the PMI to be normally sized and situated. Rhythm is regular. First and second heart sounds normal. No murmurs, rubs or gallops. Abdominal exam reveals normal bowel sounds, no masses, no organomegaly and no aortic enlargement. Extremities are nonedematous and both femoral and pedal pulses are normal. Examination of the skin revealed no evidence of significant rashes, suspicious appearing nevi or other concerning lesions. Neurologically, the patient is awake and alert and the patient does not have any focal neurological deficit. Cranial nerves are essentially intact. Assessment and Plan Plan: Obstructive sleep apnea, successfully treated with a CPAP pressure of 7 cm of water. Adequate compliancy. Adequate clinical response. Baseline apnea- hypopnea index is at 21 based on a sleep study that was done back in 2016. COVID-19 infection January 2023, recovered Mantle cell lymphoma status post systemic chemotherapy followed by bone marrow transplantation his current disease is inactive and stable and he seems to be in remission Acid reflux Hyperlipidemia Previous history of SVT Plan The patient's machine needs to be updated. He has an old machine that has exceeded its motor life span. I am going to order a new generation ResMed 11 for his machine and keep the same mask interface. The patient will be offered an APAP unit pressures of 5/10 cm of water and he will be kept on the same mask interface. He will see me back in 30 to 90 days after obtaining his new machine. Maintain same body weight. Maintain good sleep hygiene measures. Maintain a regular schedule of sleep. Will continue to follow. Sleep Note - Sleep Data ESS Total: 3 - Sleep Note Sleep Note: Temperature: 98.6 F Pulse Rate: 81 Respiratory Rate: 16 Blood Pressure: 151/88 SpO2: 97 Height: Weight: BMI: Neck Circumference: 17
== END | disposition home or self-care (01) ==
LOC: 3 N SLEEP 13:58
PROVIDERS: ATTEND Internal Medicine Critical Care Medicine
DX: G47.33 Obstructive sleep apnea (adult) (pediatric) (principal); C83.10 Mantle cell lymphoma, unspecified site; K21.9 Gastro-esophageal reflux disease without esophagitis; E78.5 Hyperlipidemia, unspecified; I47.10 Supraventricular tachycardia, unspecified
CPT/HCPCS: 99211